=== PATIENT | female | born 1945 | race Two or more races ===

== ENCOUNTER 2019-08-05 01:13 | Emergency (ER) | payer OTHER ==
[~2019-08-05] VITALS: Ht 157.5 cm; Wt 73.5 kg
[2019-08-05 02:42] LABS: Basophils # (auto) 0 uL; Basophils % (auto) 0.2 % (0.0-2.0); Eosinophils # (auto) 0.1 uL; Eosinophils % (auto) 1.4 % (0.0-7.0); Hematocrit 38.4 % (36.0-46.0); Hemoglobin 13.3 g/dL (12.2-16.2); Lymphocytes % (auto) 26.5 % (10.0-50.0); Mean Corpuscular Hemoglobin 31.1 pg (28.0-32.0); Mean Corpuscular Hgb Conc. 34.6 g/dL (32.0-36.0); Monocytes # (auto) 0.7 uL; Monocytes % (auto) 8.6 % (0.0-12.0); Neutrophils # (auto) 4.8 uL; Neutrophils % (auto) 63.3 % (37.0-80.0); Platelet Count (auto) 328 10^3/uL (140-450); Red Blood Cells 4.26 10^6/uL (4.0-5.20); Red Cell Distribution Width 13.3 % (11.8-14.3); White Blood Cell 7.6 10^3/uL (4.4-10.8)
[2019-08-05 02:50] LABS: Partial Thromboplastin Time 26.7 sec (23.64-32.05)
[2019-08-05 02:53] LABS: Alanine Aminotransferase 52 U/L (13-56); Albumin 3.5 g/dL (3.4-5.0); Anion Gap 11 (5-15); Aspartate Aminotransferase 57 U/L (15-37); BUN/Creatinine Ratio 14.7; Blood Urea Nitrogen 19 mg/dL (7-18); Calcium 8.5 mg/dL (8.5-10.1); Carbon Dioxide 23 mmol/L (21-32); Chloride 99 mmol/L (98-107); GFR African American 52 mL/min; GFR Non-African American 43 mL/min; Glucose 216 mg/dL (74-106); Potassium 3.1 mmol/L (3.5-5.1); Sodium 133 mmol/L (136-145)
[2019-08-05 02:59] LABS: Lactic Acid w/Reflex 2.2 mmol/L (0.4-2.0)
[2019-08-05 03:00] LABS: Alkaline Phosphatase 66 U/L (45-117); Bilirubin, Total 0.2 mg/dL (0.2-1.0)
[2019-08-05 03:23] LABS: Urine Bacteria NONE SEEN /hpf (None Seen); Urine Blood Negative /uL (Negative); Urine Specific Gravity 1.004 (1.001-1.035); Urine WBC <1 /hpf (0 - 5)
[2019-08-05] MEDS ORDERED: SODIUM CHLORIDE 0.9% 1,000 ML IV ONE (05:00)
[2019-08-05] MEDS ORDERED: POTASSIUM CHL 20 Meq TABLET PO ONE (05:15)
[2019-08-05 06:00] VITALS: BP 139/65
== END 2019-08-05 07:49 | disposition home or self-care (01) ==
LOC: ER 01:19
DX: F41.8 Other specified anxiety disorders (principal); E86.0 Dehydration; I10 Essential (primary) hypertension; E11.65 Type 2 diabetes mellitus with hyperglycemia; E78.5 Hyperlipidemia, unspecified; Z88.5 Allergy status to narcotic agent
CPT/HCPCS: 36415; 71045; 80053; 81001; 82962; 83605; 83880; 84484; 85025; 85610; 85730; 87040; 93005; 94761; 96360

== ENCOUNTER → 2024-02-26 | Outpatient (CLI) | payer MEDICAID, OTHER ==
[2024-02-26 09:03] LABS: Urine Bacteria None Seen /hpf (None Seen)
[2024-02-26 09:13] LABS: Basophils # (auto) 0 10 ^3/uL (0-0.2); Basophils % (auto) 0.4 % (0.0-2.0); Eosinophils # (auto) 0.1 10 ^3/uL (0-0.8); Eosinophils % (auto) 1.9 % (0.0-7.0); Hematocrit 42.3 % (36.0-46.0); Lymphocytes # (auto) 1.8 10 ^3/uL (0.4-5.4); Lymphocytes % (auto) 35.3 % (10.0-50.0); Mean Corpuscular Hemoglobin 29.6 pg (28.0-32.0); Mean Corpuscular Volume 89.5 fL (80.0-100.0); Monocytes # (auto) 0.5 10 ^3/uL (0-1.3); Monocytes % (auto) 9.7 % (0.0-12.0); Neutrophils # (auto) 2.7 10 ^3/uL (1.6-8.6); Neutrophils % (auto) 52.7 % (37.0-80.0); Red Blood Cells 4.73 10^6/uL (4.0-5.20); Red Cell Distribution Width 13.4 % (11.8-14.3); White Blood Cell 5.1 10^3/uL (4.4-10.8)
[2024-02-26 09:31] LABS: Urine Blood Negative /uL (Negative); Urine Clarity Clear (Clear); Urine Color Light-Yellow (Yellow); Urine Protein, UAD Negative (Negative); Urine Specific Gravity 1.025 (1.001-1.035); Urine Urobilinogen Normal (Negative); Urine WBC 1 /hpf (0 - 5); Urine pH 6.5 (5.0-9.0)
[2024-02-26 09:41] LABS: Alanine Aminotransferase 13 U/L (7-40); Albumin 4.2 g/dL (3.2-4.8); Alkaline Phosphatase 72 U/L (46-116); Anion Gap 5 (5-15); Aspartate Aminotransferase 20 U/L (13-40); BUN/Creatinine Ratio 21.2 (10.0-20.0); Bilirubin, Total 0.6 mg/dL (0.2-1.0); Blood Urea Nitrogen 22 mg/dL (9-23); Calcium 9.8 mg/dL (8.5-10.1); Carbon Dioxide 29 mmol/L (20-30); Chloride 104 mmol/L (98-107); Cholesterol 164 mg/dL (< 200); Glucose 128 mg/dL (74-106); HDL Cholesterol 47 mg/dL (40-59); LDL Cholesterol 94 mg/dL (< 100); Potassium 4.6 mmol/L (3.5-5.1); Sodium 138 mmol/L (136-145); Triglycerides 144 mg/dL (< 150)
[2024-02-26 09:42] LABS: Total Protein 7.4 g/dL (5.7-8.2)
[2024-02-26 10:19] LABS: Magnesium 2.1 mg/dL (1.6-2.6)
== END | disposition home or self-care (01) ==
LOC: LAB 08:52
PROVIDERS: ATTEND Internal Medicine
DX: E79.0 Hyperuricemia without signs of inflammatory arthritis and tophaceous disease (principal); D51.9 Vitamin B12 deficiency anemia, unspecified; R82.90 Unspecified abnormal findings in urine; R82.79 Other abnormal findings on microbiological examination of urine; E55.9 Vitamin D deficiency, unspecified; R73.09 Other abnormal glucose; E61.2 Magnesium deficiency; Z86.2 Personal history of diseases of the blood and blood-forming organs and certain disorders involving the immune mechanism
CPT/HCPCS: 36415; 80053; 80061; 81001; 82306; 82607; 82746; 83036; 83735; 84443; 84550; 85025; 87086

== ENCOUNTER → 2024-04-13 | Outpatient (CLI) | payer MEDICAID ==
[2024-04-13 09:52] LABS: Urine Bacteria None Seen /hpf (None Seen)
[2024-04-13 10:10] LABS: Urine Blood Negative /uL (Negative); Urine Clarity Clear (Clear); Urine Color Light-Yellow (Yellow); Urine Protein, UAD Negative (Negative); Urine Specific Gravity 1.029 (1.001-1.035); Urine Urobilinogen Normal (Negative); Urine WBC <1 /hpf (0 - 5); Urine pH 6.5 (5.0-9.0)
[2024-04-13 10:35] LABS: Alanine Aminotransferase 20 U/L (7-40); Albumin 4.2 g/dL (3.2-4.8); Alkaline Phosphatase 74 U/L (46-116); Anion Gap 5 (5-15); Aspartate Aminotransferase 17 U/L (13-40); BUN/Creatinine Ratio 19.6 (10.0-20.0); Bilirubin, Total 0.5 mg/dL (0.2-1.0); Blood Urea Nitrogen 21 mg/dL (9-23); Calcium 9.9 mg/dL (8.5-10.1); Carbon Dioxide 28 mmol/L (20-30); Chloride 104 mmol/L (98-107); Cholesterol 151 mg/dL (< 200); Glucose 201 mg/dL (74-106); HDL Cholesterol 50 mg/dL (40-59); LDL Cholesterol 92 mg/dL (< 100); Magnesium 2.1 mg/dL (1.6-2.6); Potassium 4.5 mmol/L (3.5-5.1); Sodium 137 mmol/L (136-145); Total Protein 7.2 g/dL (5.7-8.2); Triglycerides 101 mg/dL (< 150)
[2024-04-13 10:51] LABS: Uric Acid 5.1 mg/dL (3.1-7.8)
[2024-04-13 11:00] LABS: Folate (Folic Acid) 20.39 ng/mL (>5.38)
== END | disposition home or self-care (01) ==
LOC: LAB 09:42
PROVIDERS: ATTEND Internal Medicine
DX: E11.42 Type 2 diabetes mellitus with diabetic polyneuropathy (principal); I10 Essential (primary) hypertension; R82.79 Other abnormal findings on microbiological examination of urine; E55.9 Vitamin D deficiency, unspecified; Z68.27 Body mass index [BMI] 27.0-27.9, adult
CPT/HCPCS: 36415; 80053; 80061; 81001; 82306; 82607; 82746; 83036; 83735; 84443; 84550; 87086

== ENCOUNTER 2025-03-14 16:40 | Emergency (ER) | payer MEDICARE, OTHER ==
[~2025-03-14] VITALS: Ht 157.5 cm; Wt 62.2 kg
--- NOTE | 2025-03-14 17:59 | ED.PDOC ---
History of Present Illness HPI Comments 79-year-old female presents to the ED with a c/o right hand pain x 2 weeks s/p break. Patient states that 2 weeks ago she fell onto her hand, her doctor finally sent her to get an x-ray and it showed a mildly displaced fracture to her 5th metacarpal in her right hand. Patient was referred to the ER to get sp linted. 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 MEDIA DIRECTOR Hx Family History Family History: Reviewed,noncontributory to illness Social History Smoker: Non-Smoker Alcohol: Denies ETOH Use Drugs: Denies Drug Use Lives In: Home Constitutional: denies: chills, diaphoresis, fatigue, fever, malaise, sweats, weakness, others EENTM: denies: blurred vision, double vision, ear bleeding, ear discharge, ear drainage, ear pain, ear ringing, eye pain, eye redness, hearing loss, mouth pain, mouth swelling, nasal discharge, nose bleeding, nose congestion, nose pain, photophobia, tearing, throat pain, throat swelling, voice changes, others Respiratory: denies: cough, hemoptysis, orthopnea, SOB at rest, shortness of breath, SOB with excertion, stridor, wheezing, others Cardiovascular: denies: chest pain, dizzy spells, diaphoresis, Dyspnea on exertion, edema, irregular heart beat, left arm pain, lightheadedness, palpitations, PND, syncope, others Gastrointestinal: denies: abdomen distended, abdominal pain, blood streaked bowels, constipated, diarrhea, dysphagia, difficulty swallowing, hematemesis, melena, nausea, poor appetite, poor fluid intake, rectal bleeding, rectal pain, vomiting, others Genitourinary: denies: abnormal vagina bleeding, burning, dyspareunia, dysuria, flank pain, frequency, hematuria, incontinence, pain, , vagina discharge, urgency, others Neurological: denies: dizziness, fainting, headache, left sided numbness, left sided weakness, numbness, paresthesia, pre-existing deficit, right sided numbn ess, right sided weakness, seizure, speech problems, tingling, tremors, weakness, others Musculoskeletal: reports: joint pain, muscle pain; denies: back pain, gout, joint swelling, muscle stiffness, neck pain, others Integumetry: denies: bruises, change in color, change in hair/nails, dryness, laceration, lesions, lumps, rash, wounds, others Allergic/Immunocompromised: denies: Difficulty Healing, Frequent Infections, Hives, Itching, others Hematologic/Lymphatic: denies: anemia, blood clots, easy bleeding, easy bruising, swollen glands, others Endocrine: denies: excessive hunger, excessive sweating, excessive thirst, excessive urination, flushing, intolerance to cold, intolerance to heat, unexplained weight gain, unexplained weight loss, others Psychiatric: denies: anxiety, bipolar disorder, depression, hopeless, panic disorder, schizophrenia, sleepless, suicidal, others All Other Systems: Reviewed and Negative Physical Exam General Appearance: No Apparent Distress, Normal HEENT: Normal ENT Inspection, Pharynx Normal, TMs Normal Neck: Full Range of Motion, Non-Tender, Normal, Normal Inspection Respiratory: Chest Non-Tender, Lungs Clear, No Accessory Muscle Use, No Respiratory Distress, Normal Breath Sounds Cardiovascular: No Edema, No JVD, No Murmur, No Gallop, Normal Peripheral Pulses, Regular Rate/Rhythm Breast Exam: Deferred Gastrointestinal: No Organomegaly, Non Tender, No Pulsatile Mass, Normal Bowel Sounds, Soft Genitalia: Deferred Pelvic: Deferred Rectal: Deferred Extremities: No calf tenderness, Normal capillary refill, Normal inspection, Normal range of motion, Non-tender, No pedal edema Musculoskeletal : Apperance: Normal Neurologic: Alert, veterinary manager II-XII nml as Tested, No Motor Deficits, Normal Affect, Normal Mood, No Sensory Deficits Cerebellar Function: Normal Reflexes: Normal Skin: Dry, Normal Color, Warm Lymphatic: No Adenopathy Was a procedure done? Was a procedure done?: Yes Sedation Sedation?: No Informed consent obtained: Yes Other Procedure Procedure right ulnar gutter splint. properly placed. good neurovascular functions Differential Dx Considerations may include: fracture, dislocation, sprain, contusion X-Ray, Labs, Meds, VS Vital Signs Date Time Temp Pulse Resp B/P (MAP) Pulse Ox O2 Delivery O2 Flow Rate FiO2 03/14/25 17:08 98.4 69 16 133/52 (79) 98 98.4 Time of 1ST Reevaluation: 18:23 Reevaluation 1ST: Unchanged Patient Education/Counseling: Diagnosis, Treatment, Prognosis, Need For Follow Up Family Education/Counseling: Diagnosis, Treatment, Prognosis, Need For Follow Up Additional Information i reviewed the xray report pt brought in. i will have a splint placed and she is stable to follow up with her pcp. pt understands that after 2 weeks, the bone starts to mend Departure 1 Departure Time of Disposition: 18:23 Impression: Primary Impression: Metacarpal bone fracture Qualified Codes: S62.326A - Displaced fracture of shaft of fifth metacarpal bone, right hand, initial encounter for closed fracture Disposition: 01 HOME / SELF CARE / HOMELESS Condition: Good Discharged With: Self Critical Care Note Critical Care Time?: No Stability Stability form required: No Heart Score Heart Score: Heart Score Response (Comments) Value History N/A 0 EKG N/A 0 Age N/A 0 Risk Factors N/A 0 Troponin N/A 0 Total 0 I personally scribed for CHINTAN VILLANUEVA MD ([email or web address]) on 03/14/25 at 17:59. Electronically submitted by Britton Meza ([email or web address]). CHINTAN VILLANUEVA MD March 14, 2025 17:59
[2025-03-14 18:37] VITALS: TEMP 97.9
[2025-03-14] MEDS: HYDROcodone-ACET 5/325MG TAB PO ONE (19:39)
[2025-03-14 19:42] VITALS: O2SAT 98
[2025-03-14 20:00] VITALS: BP 114/76; PULSE 68; RESP 17; O2SAT 98
== END 2025-03-14 20:18 | disposition home or self-care (01) ==
LOC: ER 16:45
DX: S62.326A Displaced fracture of shaft of fifth metacarpal bone, right hand, initial encounter for closed fracture (principal); E11.9 Type 2 diabetes mellitus without complications; I10 Essential (primary) hypertension; E78.5 Hyperlipidemia, unspecified; Z90.710 Acquired absence of both cervix and uterus; Z88.5 Allergy status to narcotic agent; W19.XXXA Unspecified fall, initial encounter; Y93.89 Activity, other specified; Y92.89 Other specified places as the place of occurrence of the external cause; Y99.8 Other external cause status
CPT/HCPCS: 29125